=== PATIENT | male | born 1955 | race Caucasian/White ===

== ENCOUNTER 2017-09-15 09:01 | Day surgery (SDC) | payer BC ==
[2017-09-14 16:08] VITALS: BMI 27.6
--- OUTSIDE RECORDS SUMMARY | 2017-09-15 09:16 | XMS | Clinical Summary ---
:1955 Author Organization [facility] Address [address] [place] [address] Phone Care Team Providers Name Role Phone Yaz Gerber Primary Care Provider tel Allergies Active Allergy Reactions Severity Noted Date Comments Meperidine 02/03/2017 Hydrocodone 02/03/2017 Current Medications Prescription Sig. Disp. Refills Start Date End Date Status acetaminophen-codeine TAKE 1 TABLET(S) 3 01/21/2017 Active (TYLENOL WITH CODEINE EVERY 6 HOURS BY #3) 300-30 mg per tablet ORAL ROUTE. ALPRAZolam (XANAX) 0.25 Take 0.25 mg by 1 01/06/2017 Active MG tablet mouth 3 (three) times a day as needed. amLODIPine (NORVASC) 5 01/28/2017 Active mg tablet betamethasone APPLY A THIN LAYER 2 01/07/2017 Active dipropionate (DIPROLENE) TO THE AFFECTED 0.05 % ointment AREA(S) BY TOPICAL ROUTE ONCE DAILY eaharlskzc-rvafscruab-od TAKE 1 CAPSULE(S) 0 01/07/2017 Active f-cod (FIORICET WITH EVERY 8 HOURS BY CODEINE) [id number] mg ORAL ROUTE. per capsule doxycycline (MONODOX) TAKE 1 CAPSULE(S) 0 12/08/2016 Active 100 MG capsule TWICE A DAY BY ORAL ROUTE FOR 7 DAYS. fluticasone (FLONASE) 50 SPRAY 1 SPRAY(S) 1 01/22/2017 Active mcg/actuation nasal EVERY DAY BY spray INTRANASAL ROUTE FOR 30 DAYS. gabapentin (NEURONTIN) Take 300 mg by mouth 3 01/01/2017 Active 300 mg capsule 3 (three) times a day. levothyroxine Take 50 mcg by mouth 3 01/01/2017 Active (SYNTHROID, LEVOXYL) 50 once daily. mcg tablet lovastatin (MEVACOR) 40 Take 40 mg by mouth 3 01/01/2017 Active MG tablet nightly. metFORMIN XR Take 1,000 mg by 3 01/01/2017 Active (GLUCOPHAGE-XR) 500 mg mouth 2 (two) times 24 hr tablet a day. methocarbamol (ROBAXIN) TAKE 1 TABLET(S) 0 01/21/2017 Active 750 MG tablet EVERY 6 HOURS BY ORAL ROUTE NEEDED. montelukast (SINGULAIR) TAKE 1 TABLET(S) 3 01/01/2017 Active 10 mg tablet EVERY DAY BY ORAL ROUTE. omeprazole (PriLOSEC) 40 Take 40 mg by mouth 1 11/29/2016 Active MG capsule once daily. 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 Hip pain, left 02/03/2017 Resolved Problems Problem Noted Date Resolved Date Sciatica of left side 02/03/2017 03/03/2017 Encounters Date Type Specialty Care Team Description 06/26/2017 Orders Only Oncology Devonte Thomas MD from Last 3 Months Social History Tobacco Use Types Packs/Day Years Used Date Never Smoker Alcohol Use Drinks/Week oz/Week Comments No Sex Assigned at Date Recorded Not on file Last Filed Vital Signs Vital Sign Reading Time Taken Blood Pressure 144/82 03/03/2017 4:15 PM CDT Pulse 88 03/03/2017 4:15 PM CDT Temperature 35.7 C (96.3 F) 03/03/2017 4:15 PM CDT Respiratory Rate - - Oxygen Saturation - - Inhaled Oxygen Concentration - - Weight 90 kg (198 lb 8 oz) 03/03/2017 4:15 PM CDT Height 177.8 cm (5' 10") 03/03/2017 4:15 PM CDT Body Mass Index 28.48 03/03/2017 4:15 PM CDT Plan of Treatment Health Maintenance Due Date Last Done Comments COLONOSCOPY 2006 ZOSTER VACCINE 2016 INFLUENZA VACCINE 06/16/2017 Results Testosterone level, total, adult male (06/26/2017 4:09 PM) Component Value Ref Range Testosterone, total, adult male 213(L) 250 - 827 ng/dL Comment: Men with clinically significant hypogonadal symptoms and testosterone values repeatedly less than approximately 300 ng/dL may benefit from testosterone treatment after adequate risk and benefits counseling. In hypogonadal males, Testosterone, Total, LC/MS/MS, is the recommended assay due to the diminished accuracy of immunoassay at levels below 250 ng/dL. This test code (09145) must be collected in a red-top tube with no gel. Two morning (8-10 a.m.) specimens obtained on different days are recommended by The [employer] Society for screening for hypogonadism. Specimen Performing Laboratory [facility] CBC with platelet and differential (06/26/2017 4:09 PM) Component Value Ref Range WBC 5.5 3.8 - 10.8 Thousand/uL RBC 4.49 4.20 - 5.80 Million/uL HGB 12.3(L) 13.2 - 17.1 g/dL HCT 37.1(L) 38.5 - 50.0 % MCV 82.6 80.0 - 100.0 fL MCH 27.4 27.0 - 33.0 pg MCHC 33.2 32.0 - 36.0 g/dL RDW 14.7 11.0 - 15.0 % Platelet count 235 140 - 400 Thousand/uL MPV 10.7 7.5 - 12.5 fL Neutrophils, absolute 3355 1500 - 7800 cells/uL Lymphocytes, absolute 1309 850 - 3900 cells/uL Monocytes, absolute 435 200 - 950 cells/uL Eosinophils, absolute 380 15 - 500 cells/uL Basophils, absolute 22 0 - 200 cells/uL Neutrophils 61 % Lymphocytes 23.8 % Monocytes 7.9 % Eosinophils 6.9 % Basophils + RC 0.4 % Specimen Performing Laboratory [facility] LDH (06/26/2017 4:09 PM) Component Value Ref Range LDH 123 120 - 250 U/L Specimen Performing Laboratory [facility] Comprehensive metabolic panel (06/26/2017 4:09 PM) Component Value Ref Range Glucose 210(H) 65 - 99 mg/dL Comment: Fasting reference interval For someone without known diabetes, a glucose value >125 mg/dL indicates that they may have diabetes and this should be confirmed with a follow-up test. BUN, whole blood 24 7 - 25 mg/dL Creatinine 1.92(H) 0.70 - 1.25 mg/dL Comment: For patients >49 years of age, the reference limit for Creatinine is approximately 13% higher for people identified as -Mongolian. EGFR Non-Afr. Mongolian 37(L) > OR=60 mL/min/1.73m2 EGFR 43(L) > OR=60 mL/min/1.73m2 BUN/creatinine ratio 13 6 - 22 (calc) Sodium 140 135 - 146 mmol/L Potassium 4.9 3.5 - 5.3 mmol/L Chloride 104 98 - 110 mmol/L CO2 25 20 - 31 mmol/L Calcium 9.8 8.6 - 10.3 mg/dL Protein 7.1 6.1 - 8.1 g/dL Albumin, S 4.4 3.6 - 5.1 g/dL Globulin, total 2.7 1.9 - 3.7 g/dL (calc) Albumin/globulin ratio 1.6 1.0 - 2.5 (calc) Total bilirubin 0.4 0.2 - 1.2 mg/dL Alkaline phosphatase 83 40 - 115 U/L AST 14 10 - 35 U/L ALT 17 9 - 46 U/L Specimen Performing Laboratory [facility] from Last 3 Months Insurance Payer Benefit Plan / Group Subscriber ID Type Phone Address [employer] [facility] [id number] PPO Work: [id number] [id number], [place]: [place] [address] [phone] [facility]
[2017-09-15 09:46] LABS: Hematocrit 45.2 % (42.0-52.0); Mean Platelet Volume 7.7 fL (7.4-10.4); Red Blood Cell (RBC) Count 5.21 mill/uL (4.70-6.10); White Blood Cell (WBC) Count 5.5 thou/uL (4.8-10.8)
[2017-09-15] MEDS ORDERED: Vancomycin HCl 1.5 GM, Admixture Fee 1 EACH in Sodium Chloride 0.9% 250 ML 300 ML IVPB SCH (10:30)
[2017-09-15] MEDS ORDERED: Lidocaine 1% (PF) 30 ML VIAL ONE (10:37)
[2017-09-15] MEDS ORDERED: Bupivacaine PF 0.5% 30 ML VIAL ONE (10:37)
[2017-09-15] MEDS ORDERED: Bacitracin Zinc Ointment 30 gm TUBE ONE (10:37)
[2017-09-15] MEDS ORDERED: Thrombin 5000 UNITS/5 ML VIAL ONE (10:37)
[2017-09-15] MEDS ORDERED: Fentanyl 100 MCG/2 ML VIAL ONE (10:38)
[2017-09-15] MEDS ORDERED: Midazolam HCl 2 mg/2 ml Vial ONE (10:38)
[2017-09-15] MEDS ORDERED: Lidocaine 1% PF 5 ML VIAL ONE (11:05)
[2017-09-15] MEDS ORDERED: Ondansetron HCl/PF 4 MG/2 ML Vial ONE (11:05)
[2017-09-15] MEDS ORDERED: Ketorolac Tromethamine 30 MG/ML VIAL ONE (11:05)
[2017-09-15] MEDS ORDERED: Dexamethasone 20 MG/5 ML VIAL ONE (11:05)
[2017-09-15] MEDS ORDERED: Propofol 200 MG/20 ML VIAL ONE (11:05)
--- NOTE | 2017-09-16 06:45 | OP ---
DATE OF PROCEDURE: 09/15/2017 PREOPERATIVE DIAGNOSIS: Left dorsal hand sebaceous cyst. POSTOPERATIVE DIAGNOSIS: Left dorsal hand sebaceous cyst, 12 mm in diameter. SPECIMEN SENT: To lab, yes, cyst itself. PROCEDURE PERFORMED: 1. Excisional biopsy with removal of sebaceous cyst, dorsal radial hand, left. 2. Rotational flap coverage using a zigzag primary technique. COMPLICATIONS: None. ESTIMATED BLOOD LOSS: 5 mL or less and then the tourniquet time was 12 minutes. INDICATION: The patient with a mass with a small dimple inside and a black center indicative of pos sible sebaceous cyst, but too large to be removed in the clinic without sterile room, sterile enviro nment, and anesthesia. INJECTABLE GIVEN: 8 mL local infiltrated block kvng-incisional technique. COMPLICATIONS: None. ANESTHESIA: LMA general, Serbian Anesthesia, WAX BLENDER, Des. DESCRIPTION OF PROCEDURE: After successful general endotracheal, the limb was prepped and draped. The patient had limb exsanguinated, tourniquet inflated to 250 mmHg and a zigzag incision was made s lightly on the ulnar side of the mass so that was the best removed with the use Z-plasty technique t o perform rotational skin cutaneous flap for primary closure. We then carried the incision to skin and subcutaneous tissue after inflating the tourniquet to 250 mmHg pressure and exsanguinating the l imb. We then lifted up from the underlying branches of the arterial to the fourth and fifth metacar pal and then took time to spare the superficial nerve branches. We then completely removed the mass en bloc with skin leaving approximately 2 mm circumferential buffer zone. Released tourniquet, obt ained hemostasis. Irrigated the area. Placed 2 mL of Celestone on the extensor tendons to the inde x finger that were exposed. Then I closed the wound first. To help release of the tension on the f lap, we did a forward rotation of the radial side and backward rotation and ulnar direction rotation of the contralateral side of the skin. We then held this with 2 buried single deep dermal 4-0 Harney cryl. Then, 4-0 nylon was used to prepare to close the suture line and final injection was gi christian before going. Bulky dressing was applied and the patient left the operating room without eviden ce of anesthetic complication.
== END 2017-09-15 14:05 | disposition home or self-care (01) ==
LOC: SDC 09:01
PROVIDERS: ATTEND Orthopaedic Surgery Hand Surgery
PROC: 0HXGXZZ Transfer Left Hand Skin, External Approach (ICD-10-PCS; principal; 2017-09-15)
DX: C44.629 Squamous cell carcinoma of skin of left upper limb, including shoulder (principal); J45.909 Unspecified asthma, uncomplicated; K21.9 Gastro-esophageal reflux disease without esophagitis; I10 Essential (primary) hypertension; E78.00 Pure hypercholesterolemia, unspecified; E11.40 Type 2 diabetes mellitus with diabetic neuropathy, unspecified; G47.33 Obstructive sleep apnea (adult) (pediatric); G43.909 Migraine, unspecified, not intractable, without status migrainosus; Z79.84 Long term (current) use of oral hypoglycemic drugs; Z79.51 Long term (current) use of inhaled steroids; Z79.899 Other long term (current) drug therapy; Z88.6 Allergy status to analgesic agent; Z91.040 Latex allergy status; Z88.5 Allergy status to narcotic agent; Z91.010 Allergy to peanuts; Z90.5 Acquired absence of kidney; Z98.890 Other specified postprocedural states
CPT/HCPCS: 36415; 85027; 88305; 93005; 93010; J1100; J1885; J2001; J2250; J2405; J2704; J3010; J3370; J3490; J7050; S0020